=== PATIENT | male | born 1950 | race Caucasian/White ===

== ENCOUNTER 2021-07-03 09:59 | Outpatient (CLI) | payer MEDICARE, OTHER, SELFPAY | END 2021-07-03 10:00 | disposition home or self-care (01) | LOC: WOUND 10:00 | PROVIDERS: PCP Nurse Practitioner Family; Visit Provider Emergency Medicine | DX: I96 Gangrene, not elsewhere classified (principal); L97.812 Non-pressure chronic ulcer of other part of right lower leg with fat layer exposed | CPT/HCPCS: 11042; G0463 ==